=== PATIENT | male | born 1960 | race Caucasian/White ===

== ENCOUNTER 2016-11-24 12:51 | Emergency (ER) | payer BC ==
[2016-11-24 13:08] VITALS: BP 146/83
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
--- NOTE | 2016-11-24 13:57 | RAD ---
INDICATION: Fall. Rib pain COMPARISON: Chest x-ray July 20, 2013 TECHNIQUE: Multiple views of the ribs were obtained. FINDINGS: Bones: There is a posterior sixth rib fracture. There is minimal displacement. The marker noting site of tenderness is at the level of the anterior lower right ribs which is far removed from the site of current acute rib fracture. LUNGS: The lungs are clear. There is no pneumothorax. Pleural spaces: There is no evidence of hemothorax. Other: None IMPRESSION: RIGHT POSTERIOR SIXTH RIB FRACTURE
== END 2016-11-24 14:20 | disposition home or self-care (01) ==
LOC: UCEAST 12:51
DX: S22.31XA Fracture of one rib, right side, initial encounter for closed fracture (principal); S27.9XXA Injury of unspecified intrathoracic organ, initial encounter; W00.0XXA Fall on same level due to ice and snow, initial encounter; Y93.9 Activity, unspecified; Y92.9 Unspecified place or not applicable; Y99.9 Unspecified external cause status; F17.210 Nicotine dependence, cigarettes, uncomplicated
CPT/HCPCS: 99212; G0463

== ENCOUNTER 2017-02-10 11:12 | Emergency (ER) | payer BC ==
[2017-02-10 12:51] VITALS: BP 118/76
--- NOTE | 2017-02-10 13:41 | UC ---
Hand/Wrist HPI - HPI Summary HPI Summary: complaint of left wrist and hand pain since falling last night in his house constantly aching moving his fingers increases the pain nothing lessens the pain not taking any medications for apin - History Of Current Complaint Chief Complaint: UCGeneralIllness Stated Complaint: WRIST INJURY Time Seen by Provider: 02/10/17 13:35 Hx Obtained From: Patient - Allergies/Home Medications Allergies/Adverse Reactions: Allergies Allergy/AdvReac Type Severity Reaction Status Date / Time No Known Allergies Allergy Verified 02/10/17 12:40 Home Medications: Home Medications NK [No Home Medications Reported] 02/10/17 [History Confirmed 02/10/17] PMH/Surg Hx/FS Hx/Imm Hx Previously Healthy: Yes Endocrine History Of: Denies: Diabetes, Thyroid Disease Cardiovascular History Of: Denies: Cardiac Disorders, Hypertension Respiratory History Of: Denies: COPD, Asthma GI/ History Of: Denies: Ulcer - Surgical History Surgical History: Yes Surgery Procedure, Year, and Place: tonsilectomy. benign tumor removed from rt neck 1999. lipoma removed from upper back 2011. teeth extraction 2011 - Family History Known Family History: Positive: Hypertension - MOTHER AND BROTHER, Diabetes - MOTHER AND BROTHER Negative: Cardiac Disease - Social History Occupation: Employed Full-time Lives: With Family Alcohol Use: Occasionally Substance Use Type: None Substance Use Comment - Amount & Last Used: "a couple days ago" Smoking Status (MU): Heavy Every Day Tobacco Smoker Type: Cigarettes Amount Used/How Often: 1 pack/ day Length of Time of Smoking/Using Tobacco: 44 years Have You Smoked in the Last Year: Yes Household Exposure Type: Cigarettes Review of Systems Constitutional: Negative Skin: Negative Eyes: Negative ENT: Negative Respiratory: Negative Cardiovascular: Negative Gastrointestinal: Negative Genitourinary: Negative Motor: Negative Neurovascular: Negative Musculoskeletal: Other: - left wrist and hand pain Neurological: Negative Psychological: Negative All Other Systems Reviewed And Are Negative: Yes Physical Exam Triage Information Reviewed: Yes Appearance: No Pain Distress, Well-Nourished Vital Signs: Initial Vital Signs Temp 97.9 F 02/10/17 12:42 Pulse 66 02/10/17 12:42 Resp 18 02/10/17 12:42 BP 118/76 02/10/17 12:42 Pulse Ox 98 02/10/17 12:42 Vital Signs Reviewed: Yes Eyes: Positive: Conjunctiva Clear ENT: Positive: Pharynx normal, TMs normal Neck: Positive: No Lymphadenopathy Respiratory: Positive: Lungs clear, Normal breath sounds, No respiratory distress Cardiovascular: Positive: RRR, No Murmur, Pulses Normal Abdomen Description: Positive: Nontender, Soft Bowel Sounds: Positive: Present Musculoskeletal: Positive: Other: - Right hand dominant. edema and erythema over 3rd,4th 5th metacarpals No anatomical snuff box tenderness; Full ROM in DIP, PIP, MCP, & carpal joints & with supination and pronation. slight tenderness medial side of wrist Neurological Exam: Normal Psychological Exam: Normal Skin Exam: Normal Hand/Wrist Course/Dx - Differential Dx/Diagnosis Differential Diagnosis/HQI/PQRI: Contusion, Fracture, Sprain, Strain Provider Diagnoses: left hand contusion Discharge - Discharge Plan Condition: Stable Disposition: HOME Patient Education Materials: Contusion in Adults (ED), RICE Therapy (ED) Forms: *Work Release Referrals: No Primary Care Phys,NOPCP [Primary Care Provider] - [facility] [Outside] Additional Instructions: Increase fluids and rest Take acetaminophen or ibuprofen for fever or pain Please review your discharge instructions. If your symptoms do not improve please call your primary care provider or return to urgent care.
--- NOTE | 2017-02-10 14:07 | RAD ---
HISTORY: Left hand and wrist pain, trauma COMPARISONS: None VIEWS: 4, Frontal and lateral views of the left hand and wrist FINDINGS: BONE DENSITY: Normal. BONES: There is no displaced fracture. JOINTS: There is no arthropathy. ALIGNMENT: There is no dislocation. SOFT TISSUES: Unremarkable. OTHER FINDINGS: None. IMPRESSION: NO ACUTE OSSEOUS INJURY. IF SYMPTOMS PERSIST, RECOMMEND REPEAT IMAGING.
== END 2017-02-10 14:40 | disposition home or self-care (01) ==
LOC: UCEAST 11:12
DX: S60.222A Contusion of left hand, initial encounter (principal); W19.XXXA Unspecified fall, initial encounter; Y93.9 Activity, unspecified; Y92.009 Unspecified place in unspecified non-institutional (private) residence as the place of occurrence of the external cause; F17.210 Nicotine dependence, cigarettes, uncomplicated
CPT/HCPCS: 99212; G0463

== ENCOUNTER 2017-04-20 18:37 | Emergency (ER) | payer BC ==
[2017-04-20 18:43] VITALS: BP 117/80
[2017-04-20] MEDS ORDERED: Sulfamethox/Trimethoprim DS 800/160* TAB PO ONE (22:11)
[2017-04-20] MEDS ORDERED: HYDROcodone/ACETAMIN 5-325 MG* 1 TAB PO ONE (22:13)
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
== END 2017-04-20 22:37 | disposition home or self-care (01) ==
LOC: UCEAST 18:37
DX: L02.413 Cutaneous abscess of right upper limb (principal); N49.2 Inflammatory disorders of scrotum; F17.210 Nicotine dependence, cigarettes, uncomplicated
CPT/HCPCS: 99212; A9270-GY; G0463

== ENCOUNTER 2017-08-27 16:37 | Emergency (ER) | payer BC ==
[2017-08-27 16:44] VITALS: BP 157/70
--- NOTE | 2017-08-27 16:45 | UC ---
Skin Complaint HPI - HPI Summary HPI Summary: 56 year old male presents in 08/10 excruciating pain with left gluteal abscess. The abcess was previously drained but a much larger incision is needed to penetrate the sinus tracts. I will send him to the er for proper pain control and a deeper I/D with packing. - History of Current Complaint Chief Complaint: UCSkin Time Seen by Provider: 08/27/17 16:44 Stated Complaint: BUG BITE Hx Obtained From: Patient Onset/Duration: Sudden Onset Skin Exposure Onset/Duration: Hours Ago Onset Severity: Severe Current Severity: Severe Pain Scale Used: 0-10 Numeric - 10 - Allergy/Home Medications Allergies/Adverse Reactions: Allergies Allergy/AdvReac Type Severity Reaction Status Date / Time No Known Allergies Allergy Verified 08/27/17 16:44 Home Medications: Home Medications NK [No Home Medications Reported] 08/27/17 [History Confirmed 08/27/17] Review of Systems Constitutional: Negative Skin: Other - left gluteal abscess Eyes: Negative ENT: Negative Respiratory: Negative Cardiovascular: Negative Gastrointestinal: Negative Genitourinary: Negative Motor: Negative Neurovascular: Negative Musculoskeletal: Negative Neurological: Negative Psychological: Negative All Other Systems Reviewed And Are Negative: Yes PMH/Surg Hx/FS Hx/Imm Hx Previously Healthy: Yes - Surgical History Surgical History: Yes Surgery Procedure, Year, and Place: tonsilectomy. benign tumor removed from rt neck 1999. lipoma removed from upper back 2011. teeth extraction 2011 - Family History Known Family History: Positive: Hypertension - MOTHER AND BROTHER, Diabetes - MOTHER AND BROTHER Negative: Cardiac Disease - Social History Alcohol Use: Occasionally Substance Use Type: None Substance Use Comment - Amount & Last Used: "a couple days ago" Smoking Status (MU): Heavy Every Day Tobacco Smoker Type: Cigarettes Amount Used/How Often: 1 pack/ day Length of Time of Smoking/Using Tobacco: 44 years Have You Smoked in the Last Year: Yes Household Exposure Type: Cigarettes Physical Exam Triage Information Reviewed: Yes Vital Signs: Initial Vital Signs Temp 37.0 C 08/27/17 16:39 Pulse 96 08/27/17 16:39 Resp 20 08/27/17 16:39 BP 157/70 08/27/17 16:39 Pulse Ox 99 08/27/17 16:39 Vital Signs Reviewed: Yes Eye Exam: Normal ENT Exam: Normal Dental Exam: Normal Neck exam: Normal Neck: Positive: 1 Respiratory Exam: Normal Cardiovascular Exam: Normal Abdominal Exam: Normal Musculoskeletal Exam: Normal Neurological Exam: Normal Psychological Exam: Normal Skin: Positive: Other - left gluteal abscess Course/Dx - Diagnoses Provider Diagnoses: left large gluteal abscess Discharge - Discharge Plan Condition: Stable Disposition: OTHER Discharge Disposition Comment: patient suggested to go to the er. Patient Education Materials: Abscess (ED) Referrals: No Primary Care Phys,NOPCP [Primary Care Provider] - Additional Instructions: please go to er for left gluteal abscess. 08/10 pain.
== END 2017-08-27 17:08 ==
LOC: UCEAST 16:37
DX: L02.31 Cutaneous abscess of buttock (principal); B95.62 Methicillin resistant Staphylococcus aureus infection as the cause of diseases classified elsewhere; F17.210 Nicotine dependence, cigarettes, uncomplicated
CPT/HCPCS: 87070; 87205; 87640; 87641; 99211; G0463

== ENCOUNTER 2017-08-27 17:27 | Emergency (ER) | payer BC ==
[2017-08-27] MEDS ORDERED: oxyCODONE/Acetamin 5/325 MG* TAB PO ONE ×2 (20:03→21:18)
[2017-08-27] MEDS ORDERED: Ondansetron ODT TAB* 4 MG PO ONE (20:03)
[2017-08-27] MEDS ORDERED: Sulfamethox/Trimethoprim DS 800/160* TAB PO ONE (21:18)
--- NOTE | 2017-08-27 21:18 | ED ---
Skin Complaint - HPI Summary HPI Summary: 56M presents with abscess on left gluteal region. He got a bug bite on the area on Wednesday. He states the area got large. He attempted to drain the area by squeezing it and got some pus out of the area a couple days ago He states the area is extremely tender. He states anytime that something touches the area it causes extreme pain. He denies any fever. Is not diabetic. no history of MRSA. He works in a paper factory. - History of Current Complaint Chief Complaint: EDGeneral Time Seen by Provider: 08/27/17 19:26 Stated Complaint: GLUTEAL ABSCESS/SENT FROM Pain Intensity: 8 - Allergy/Home Medications Allergies/Adverse Reactions: Allergies Allergy/AdvReac Type Severity Reaction Status Date / Time No Known Allergies Allergy Verified 08/27/17 16:44 PMH/Surg Hx/FS Hx/Imm Hx Endocrine/Hematology History: Denies: Hx Diabetes, Hx Thyroid Disease Cardiovascular History: Denies: Hx Hypertension Respiratory History: Denies: Hx Asthma, Hx Chronic Obstructive Pulmonary Disease (COPD) GI History: Denies: Hx Ulcer - Surgical History Surgery Procedure, Year, and Place: tonsilectomy. benign tumor removed from rt neck 1999. lipoma removed from upper back 2011. teeth extraction 2011 Infectious Disease History: No Infectious Disease History: Denies: Hx Clostridium Difficile, Hx Hepatitis, Hx Human Immunodeficiency Virus (HIV), Hx of Known/Suspected MRSA, Hx Shingles, Hx Tuberculosis, Hx Known/ Suspected VRE, Hx Known/Suspected VRSA, History Other Infectious Disease, Traveled Outside the [place] in Last 30 Days - Family History Known Family History: Positive: Hypertension - MOTHER AND BROTHER, Diabetes - MOTHER AND BROTHER Negative: Cardiac Disease - Social History Alcohol Use: Occasionally Substance Use Type: Reports: None Substance Use Comment - Amount & Last Used: "a couple days ago" Smoking Status (MU): Heavy Every Day Tobacco Smoker Type: Cigarettes Amount Used/How Often: 1 pack/ day Length of Time of Smoking/Using Tobacco: 44 years Have You Smoked in the Last Year: Yes Review of Systems Negative: Fever Negative: Chest Pain Negative: Shortness Of Breath Positive: Other - abscess on left buttock All Other Systems Reviewed And Are Negative: Yes Physical Exam Triage Information Reviewed: Yes Vital Signs On Initial Exam: Initial Vitals Temp Pulse Resp BP Pulse Ox 98.1 F 87 20 134/83 96 10/27/17 17:32 08/27/17 17:32 08/27/17 17:32 08/27/17 17:32 08/27/17 17:32 Vital Signs Reviewed: Yes Appearance: Positive: Well-Appearing Skin: Positive: Warm, Dry, Other - 5cm by 6cm area of erythema with area of locuation in center with some pus drainage expressed from opening Head/Face: Positive: Normal Head/Face Inspection Eyes: Positive: Normal, Conjunctiva Clear Respiratory/Lung Sounds: Positive: Clear to Auscultation, Breath Sounds Present Cardiovascular: Positive: Normal, RRR Musculoskeletal: Positive: Normal Neurological: Positive: Normal Psychiatric: Positive: Normal - Elsy Coma Scale Coma Scale Total: 15 Procedures - Incision and Drainage Site: left glutteal region Anesthesia: Local Instrument(s): Scalpel Packing: Gauze Diagnostics - Vital Signs Vital Signs Temp Pulse Resp BP Pulse Ox 08/27/17 20:13 18 08/27/17 17:32 98.1 F 87 20 134/83 96 - Laboratory Lab Statement: Any lab studies that have been ordered have been reviewed, and results considered in the medical decision making process. Course/Dx - Course Course Of Treatment: 56M presents with abscess on left gluteal region. He got a bug bite on the area on Wednesday. He states the area got large. He attempted to drain the area by squeezing it and got some pus out of the area a couple days ago He states the area is extremely tender. He states anytime that something touches the area it causes extreme pain. He denies any fever. Is not diabetic. no history of MRSA. on exam has 5cm by 6cm area of erythema with area of locuation in center with some pus drainage expressed from opening. I&D area and expressed copious amount of pus. packed area. will placed on bactrim and have follow up for wound check in two days. patient understands and agrees with plan. - Differential Diagnoses - Skin Complaint Differential Diagnoses: Abscess, Cellulitis, Contact Dermatitis - Diagnoses Provider Diagnoses: Abscess, gluteal, left Discharge - Discharge Plan Condition: Good Disposition: HOME Prescriptions: Sulfamethox/Trimethoprim DS* [Bactrim DS 800/160 TAB*] 1 tab PO BID #19 tab oxyCODONE/Acetamin 5/325 MG* [Percocet 5/325 TAB*] 1 tab PO Q6H PRN #12 tab MDD 4 PRN Reason: Pain Patient Education Materials: Abscess (ED) Forms: *Work Release Referrals: [facility] [place] [facility] [Outside] Additional Instructions: Take antibiotic twice a day for 10 days, first dose given in ED Apply warm compresses to area Take ibuprofen or Tylenol for pain every 6 hours, use narcotic for break through pain Follow up with urgent care or ED for wound check in two days Return to ED if develop fever, area of redness spreads, or any new or worsening symptoms
[2017-08-27 21:58] VITALS: BP 115/79
--- NOTE | 2017-08-29 09:09 | ED ---
Progress - Progress Note Progress Note: Pt's wound cx + for MRSA and Staph Aureus - pt started on bactrim. No changes at this time. Course/Dx - Course Course Of Treatment: 56M presents with abscess on left gluteal region. He got a bug bite on the area on Wednesday. He states the area got large. He attempted to drain the area by squeezing it and got some pus out of the area a couple days ago He states the area is extremely tender. He states anytime that something touches the area it causes extreme pain. He denies any fever. Is not diabetic. no history of MRSA. on exam has 5cm by 6cm area of erythema with area of locuation in center with some pus drainage expressed from opening. I&D area and expressed copious amount of pus. packed area. will placed on bactrim and have follow up for wound check in two days. patient understands and agrees with plan. - Diagnoses Provider Diagnoses: Abscess, gluteal, left
== END 2017-08-27 21:57 | disposition home or self-care (01) ==
LOC: ED 17:27
DX: L02.31 Cutaneous abscess of buttock (principal); F17.210 Nicotine dependence, cigarettes, uncomplicated; B95.62 Methicillin resistant Staphylococcus aureus infection as the cause of diseases classified elsewhere
CPT/HCPCS: 87070; 87077; 87186; 87205; 87640; 87641; 99282; A9270-GY

== ENCOUNTER 2020-07-01 23:47 | Inpatient (IN) ==
[2020-07-02 00:51] LABS: ABS Basophils 0.1 10^3/ul (0-0.2); ABS Lymphocytes 3.3 10^3/ul (1.0-4.8); ABS Monocytes 1.2 10^3/ul (0-0.8); ABS Neutrophils 9.7 10^3/ul (1.5-7.7); Eosinophil % 0.1 %; Hematocrit 41 % (42-52); Hemoglobin 14.5 g/dL (14.0-18.0); Lymphocyte % 22.9 %; Mean Corpuscular HGB Conc 36 g/dL (31-36); Mean Corpuscular Hemoglobin 30 pg (27-31); Mean Corpuscular Volume 85 fL (80-94); Mean Platelet Volume 8.9 fL (7.4-10.4); Platelet Count 220 10^3/uL (150-450); Red Blood Count 4.77 10^6 /uL (4.18-5.48); Red Cell Distribution Width 14 % (10-15); White Blood Count 14.3 10^3/uL (3.5-10.8)
[2020-07-02 01:01] LABS: INR 1.14 (0.82-1.09)
[2020-07-02 01:10] LABS: ALT 31 U/L (7-52); AST 88 U/L (13-39); Albumin 4.3 g/dL (3.2-5.2); Albumin/Globulin Ratio 1.7 (1-3); Alkaline Phosphatase 65 U/L (34-104); Anion Gap 7 mmol/L (2-11); BUN/Creatinine Ratio 15.6 (8-20); Blood Urea Nitrogen 12 mg/dL (6-24); CO2 Carbon Dioxide 25 mmol/L (22-32); Calcium 9.6 mg/dL (8.6-10.3); Chloride 103 mmol/L (101-111); EGFR African American 124.7 (>60); EGFR Non-African American 103.1 (>60); Globulin 2.6 g/dL (2-4); Glucose 105 mg/dL (70-100); Potassium 3.8 mmol/L (3.5-5.0); Sodium 135 mmol/L (135-145); Total Protein 6.9 g/dL (6.4-8.9)
[2020-07-02 02:19] LABS: Troponin I 30.12 ng/mL (<0.03)
[2020-07-02] MEDS ORDERED: Morphine 2 MG/ML SYRINGE IV PRN (04:46)
[2020-07-02] MEDS ORDERED: Heparin 5000 UNITS/ML 1 mL VIAL IV SCH (05:00)
[2020-07-02] MEDS: Heparin DRIP 25,000 UNITS BAG 25,000 UNITS/500 ML BAG IV SCH (05:30)
[2020-07-02 07:03] LABS: Cholesterol 261 mg/dL; LDL Cholesterol 207 mg/dL; Triglycerides 95 mg/dL
[2020-07-02] MEDS ORDERED: Perflutren Lipid Microsphere 3 ML VIAL ONE (08:13)
[2020-07-02] MEDS ORDERED: NS 0.9% 1000 ml BAG 1,000 ML IV SCH (09:00)
[2020-07-02] MEDS ORDERED: fentaNYL 100 mcg/2 ml 50 MCG/ML VIAL ONE (11:15)
[2020-07-02] MEDS ORDERED: Midazolam 5 mg/5 ml VIAL 1 mg/ml 5 ml VIAL (5 mg) ONE (11:15)
[2020-07-02] MEDS ORDERED: VERAPAMIL 2.5 MG/ML 2 ML VIAL ** 5 mg/2 ml ONE (11:15)
[2020-07-02] MEDS ORDERED: Heparin 1,000 UNIT/ML 10 ml (10,000 UNITS) CATHLAB/DIALYSIS ONE (11:15)
[2020-07-02] MEDS ORDERED: Lidocaine 1% VIAL 10 MG/ML VIAL ONE (11:16)
[2020-07-02] MEDS ORDERED: nitroGLYCERIN DRIP 0 MCG/0 ML BTL ONE (11:16)
[2020-07-02] MEDS ORDERED: Heparin 2 UNITS/ML 1000 mls 0 ML IV ONE (11:16)
[2020-07-02] MEDS ORDERED: Iohexol 350 (CONTRAST) 200 ML MDV IV ONE (11:17)
[2020-07-02] MEDS: NS 0.9% 1000 ml BAG 1,000 ML IV SCH (23:57)
[2020-07-03] MEDS: Heparin DRIP 25,000 UNITS BAG 25,000 UNITS/500 ML BAG IV SCH (05:35)
[2020-07-03] MEDS: NS 0.9% 1000 ml BAG 1,000 ML IV SCH ×2 (05:35→18:14)
[2020-07-03 06:09] LABS: ABS Basophils 0.1 10^3/ul (0-0.2); ABS Lymphocytes 3.2 10^3/ul (1.0-4.8); ABS Monocytes 0.7 10^3/ul (0-0.8); ABS Neutrophils 5.7 10^3/ul (1.5-7.7); Eosinophil % 0.3 %; Hematocrit 39 % (42-52); Hemoglobin 13.4 g/dL (14.0-18.0); Mean Corpuscular HGB Conc 34 g/dL (31-36); Mean Corpuscular Hemoglobin 30 pg (27-31); Mean Corpuscular Volume 86 fL (80-94); Platelet Count 194 10^3/uL (150-450); Red Blood Count 4.52 10^6 /uL (4.18-5.48); Red Cell Distribution Width 14 % (10-15); White Blood Count 9.8 10^3/uL (3.5-10.8)
[2020-07-03 06:57] LABS: BUN/Creatinine Ratio 25.4 (8-20); Calcium 8.7 mg/dL (8.6-10.3); EGFR African American 146.4 (>60); Potassium 3.6 mmol/L (3.5-5.0)
[2020-07-03] MEDS ORDERED: Heparin 1,000 UNIT/ML 10 ml (10,000 UNITS) CATHLAB/DIALYSIS ONE (08:01)
[2020-07-03] MEDS ORDERED: Heparin 2 UNITS/ML 1000 mls 2,000 ML IV ONE (08:01)
[2020-07-03] MEDS ORDERED: nitroGLYCERIN DRIP 0 MCG/0 ML BTL ONE (08:01)
[2020-07-03] MEDS ORDERED: VERAPAMIL 2.5 MG/ML 2 ML VIAL ** 5 mg/2 ml ONE (08:01)
[2020-07-03] MEDS ORDERED: Lidocaine 1% VIAL 10 MG/ML VIAL ONE (08:01)
[2020-07-03] MEDS ORDERED: Iohexol 350 (CONTRAST) 200 ML MDV IV ONE (08:02)
[2020-07-03] MEDS ORDERED: HYDROmorphone 1 MG/1 ML SYRINGE ONE (08:16)
[2020-07-03] MEDS ORDERED: Midazolam 5 mg/5 ml VIAL 1 mg/ml 5 ml VIAL (5 mg) ONE (08:16)
[2020-07-03] MEDS ORDERED: diPHENhydraMINE IV 50 MG/ML 1 ml VIAL (BENADRYL) ONE (08:16)
[2020-07-03] MEDS ORDERED: NS 0.9% 1000 ml BAG 1,000 ML IV SCH (09:45)
[2020-07-04 05:42] LABS: ABS Eosinophils 0.1 10^3/ul (0-0.6); ABS Lymphocytes 2.2 10^3/ul (1.0-4.8); ABS Monocytes 0.7 10^3/ul (0-0.8); ABS Neutrophils 5.4 10^3/ul (1.5-7.7); Eosinophil % 0.9 %; Hematocrit 39 % (42-52); Hemoglobin 13.3 g/dL (14.0-18.0); Lymphocyte % 26.7 %; Mean Corpuscular HGB Conc 34 g/dL (31-36); Mean Corpuscular Hemoglobin 30 pg (27-31); Mean Corpuscular Volume 86 fL (80-94); Platelet Count 197 10^3/uL (150-450); Red Blood Count 4.47 10^6 /uL (4.18-5.48); Red Cell Distribution Width 14 % (10-15); White Blood Count 8.3 10^3/uL (3.5-10.8)
[2020-07-04 05:54] LABS: Albumin 3.7 g/dL (3.2-5.2); Anion Gap 7 mmol/L (2-11); CO2 Carbon Dioxide 23 mmol/L (22-32); Calcium 8.7 mg/dL (8.6-10.3); Chloride 108 mmol/L (101-111); Potassium 3.8 mmol/L (3.5-5.0); Sodium 138 mmol/L (135-145)
[2020-07-04 06:00] LABS: ALT 19 U/L (7-52); AST 20 U/L (13-39); Albumin/Globulin Ratio 1.5 (1-3); Alkaline Phosphatase 57 U/L (34-104); BUN/Creatinine Ratio 17.1 (8-20); Blood Urea Nitrogen 12 mg/dL (6-24); Cholesterol 212 mg/dL; EGFR African American 139.2 (>60); Globulin 2.4 g/dL (2-4); Glucose 102 mg/dL (70-100); HDL Cholesterol 27.8 mg/dL; LDL Cholesterol 161 mg/dL; Total Protein 6.1 g/dL (6.4-8.9); Triglycerides 117 mg/dL
[2020-07-04] MEDS: Enoxaparin 40 MG/0.4 ML SYR SUBCUT SCH (10:03)
[2020-07-04] MEDS ORDERED: Potassium Chloride LIQUID 20 MEQ/15 ML LIQUID PO ONE (11:43)
[2020-07-04 13:48] LABS: Troponin I 10.56 ng/mL (<0.03)
[2020-07-04] MEDS ORDERED: Nicotine GUM 2MG FRUIT FLAVOR PO PRN (21:13)
[2020-07-04] MEDS ORDERED: Nicotine GUM 2MG FRUIT FLAVOR PO ONE (21:23)
[2020-07-05 06:03] LABS: ABS Basophils 0.1 10^3/ul (0-0.2); ABS Eosinophils 0.1 10^3/ul (0-0.6); ABS Lymphocytes 2.5 10^3/ul (1.0-4.8); ABS Monocytes 0.6 10^3/ul (0-0.8); ABS Neutrophils 4.6 10^3/ul (1.5-7.7); Eosinophil % 0.7 %; Hematocrit 39 % (42-52); Hemoglobin 13.4 g/dL (14.0-18.0); Lymphocyte % 31.9 %; Mean Corpuscular HGB Conc 34 g/dL (31-36); Mean Corpuscular Hemoglobin 29 pg (27-31); Mean Corpuscular Volume 86 fL (80-94); Mean Platelet Volume 8.7 fL (7.4-10.4); Platelet Count 220 10^3/uL (150-450); Red Blood Count 4.57 10^6 /uL (4.18-5.48); Red Cell Distribution Width 14 % (10-15); White Blood Count 7.7 10^3/uL (3.5-10.8)
[2020-07-05 06:17] LABS: Anion Gap 7 mmol/L (2-11); Blood Urea Nitrogen 12 mg/dL (6-24); CO2 Carbon Dioxide 23 mmol/L (22-32); Calcium 9.3 mg/dL (8.6-10.3); Chloride 108 mmol/L (101-111); EGFR African American 128.5 (>60); EGFR Non-African American 106.2 (>60); Glucose 105 mg/dL (70-100); Potassium 4.1 mmol/L (3.5-5.0); Sodium 138 mmol/L (135-145)
[2020-07-05 06:19] LABS: Troponin I 6.13 ng/mL (<0.03)
[2020-07-05] MEDS: Enoxaparin 40 MG/0.4 ML SYR SUBCUT SCH (08:04)
[2020-07-05 12:07] VITALS: BP 107/66
== END 2020-07-05 14:22 | disposition short-term general hospital (02) | DRG 190 ==
LOC: ED 23:47 → MEDTELE 07-02 05:12
PROVIDERS: ADMIT Hospitalist; ATTEND Internal Medicine